=== PATIENT | male | born 1950 | race African-American/Black ===

== ENCOUNTER 2017-03-21 14:53 | Emergency (ER) | payer MEDICARE ==
[~2017-03-21] VITALS: Ht 172.7 cm; Wt 94.2 kg
[~2017-03-21 14:53] MED LIST: BACTRIM DS1 TAB OR; CEPHALEXIN500 MG OR; LORTAB5 OR; [UNRECOGNIZED DRUG - REMARK]
[2017-03-21 15:14] VITALS: BP 112/60
[2017-03-21] MEDS ORDERED: PENICILLN VK500 MG PO (15:18)
[2017-03-21] MEDS ORDERED: LORTAB 5/3255 MG PO (15:18)
== END 2017-03-21 15:27 | disposition home or self-care (01) ==
LOC: ED 14:53
DX: K08.89 Other specified disorders of teeth and supporting structures (principal); R50.9 Fever, unspecified

== ENCOUNTER 2018-01-26 09:34 | Emergency (ER) | payer MEDICARE ==
[~2018-01-26] VITALS: Ht 172.7 cm; Wt 94.0 kg
[~2018-01-26 09:34] MED LIST changes: +LORTAB 5/3255 MG PO; +PENICILLN VK500 MG PO
[2018-01-26] MEDS ORDERED: HYDROCO/APAP1 TA9 PO (10:47)
[2018-01-26 11:00] VITALS: BP 146/80
== END 2018-01-26 11:00 | disposition home or self-care (01) ==
LOC: ED 09:34
DX: S20.211A Contusion of right front wall of thorax, initial encounter (principal); F17.210 Nicotine dependence, cigarettes, uncomplicated; W10.9XXA Fall (on) (from) unspecified stairs and steps, initial encounter; Y92.009 Unspecified place in unspecified non-institutional (private) residence as the place of occurrence of the external cause

== ENCOUNTER 2018-03-04 15:26 | Emergency (ER) | payer MEDICARE ==
[~2018-03-04 15:26] MED LIST changes: +HYDROCO/APAP1 TA9 PO
== END 2018-03-04 15:28 | disposition expired ==
LOC: ED
DX: I46.9 Cardiac arrest, cause unspecified (principal); I51.9 Heart disease, unspecified; F17.200 Nicotine dependence, unspecified, uncomplicated